=== PATIENT | female | born 1955 | race Caucasian/White ===

== ENCOUNTER → 2021-01-18 14:53 | Outpatient (BNVA) | payer MEDICARE, OTHER, SELFPAY | PROVIDERS: Visit Provider Nurse Practitioner Family | DX: J06.9 Acute upper respiratory infection, unspecified (principal); Z20.822 Contact with and (suspected) exposure to COVID-19 | CPT/HCPCS: 87635 ==

== ENCOUNTER 2021-01-22 05:58 | Outpatient (CLI) | payer MEDICARE, OTHER, SELFPAY ==
[2021-01-22 06:12] VITALS: BP 133/61; PULSE 62; RESP 18; TEMP 36.9; O2SAT 91
[2021-01-22 06:24] VITALS: BMI 28.3
--- NOTE | 2021-01-22 06:24 | W.ED.GENADLT ---
HPI - General Adult General: Source: patient Mode of arrival: ambulatory Limitations: no limitations History of Present Illness: HPI narrative: Patient is here for Covid infusion. complaint: Covid infusion Onset (ago): hour(s) (6) Radiation: non-radiation Severity: mild Pain Consistency: constant Relieving factors: none Exacerbating factors: none Associated symptoms: Reports cough and dyspnea (mild); Deny chest pain, confusion, nausea, rash, palpitations or vomiting Treatments prior to arrival: none Review of Systems Const: Denies: fever(s) or chills Eyes: Denies: change in vision ENMT: Denies: throat pain Card: Denies: chest pain or palpitations Resp: Reports: dyspnea (mild) and non-productive cough GI: Denies: abdominal pain, nausea or vomiting : Denies: flank pain Musc: Denies: neck pain or back pain Skin/Breast: Denies: rash or pruritus Neuro: Denies: confusion Psych: Denies: anxiety Yfn/Lymph: Denies: enlarged lymph nodes Physical Exam Const: COMMON NORMALS: no acute distress, patient oriented x3, no limitations and well nourished GENERAL APPEARANCE: cooperative OTHER: Oxygen saturation 94% on room air. HENMT: COMMON NORMALS: normocephalic and atraumatic HEAD & SCALP: normocephalic and atraumatic FACE & SINUS: normal facial exam Eye: COMMON NORMALS: EOMs intact bilaterally Neck/C-Spine: COMMON NORMALS: full ROM, no lymphadenopathy, supple and no meningeal signs GENERAL: Yes normal visual inspection Lymph: LYMPHATIC: no lymphadenopathy noted Chest: COMMONS NORMALS: normal inspection of the chest and normal palpation of entire chest wall CHEST: No Ecchymosis present and No rash Resp: COMMON NORMALS: normal respiratory effort, No retractions and clear to auscultation bilaterally EFFORT & INSPECTION: No respiratory distress AUSCULTATION: clear to auscultation bilaterally Cardio: COMMON NORMALS: regular rate, regular rhythm and Peripheral pulses 2+ throughout JUGULAR VENOUS DISTENTION: no JVD RATE: regular rate RHYTHM: regular rhythm PERIPHERAL PULSES: Peripheral pulses 2+ throughout GI: COMMON NORMALS: Normal to inspection, nondistended, normoactive bowel sounds present and non-tender : COMMON NORMALS: Yes no CVA tenderness BLADDER/KIDNEY EXAM: Yes no CVA tenderness Back/Pelvis: COMMON NORMALS: no CVA tenderness Extremity: COMMON NORMALS: normal to inspection, full ROM and capillary refill normal Neuro: COMMON NORMALS: patient oriented x3, CN's II-XII intact bilaterally, no focal motor deficits and no sensory deficits noted MENINGEAL SIGNS: Yes no meningeal signs Psych: COMMON NORMALS: mental status grossly normal and Normal thought process present THOUGHT PROCESS: Normal thought process present Skin: COMMON NORMALS: no rashes or lesions noted and no wounds GENERAL SKIN EXAM: no rashes or lesions noted Course Vital Signs: Vital signs: Vital Signs Temperature 98.5 F 01/22/21 06:12 Pulse Rate 60 01/22/21 07:36 Respiratory Rate 16 01/22/21 07:36 Blood Pressure 128/68 01/22/21 07:36 Pulse Oximetry 93 01/22/21 07:36 MDM - General Adult MDM Narrative: Medical decision making narrative: Oxygen saturation 94% on room air 0825: pt doing well Discharge Plan Discharge Patient Disposition: Home Prescriptions: New ProAir HFA 90 mcg/actuation HFA aerosol inhaler 2 inh inhalation Q6H PRN (Reason: shortness of breath or wheezing) Qty: 8.5 RF: 2 No Action atorvastatin 40 mg tablet 40 mg PO DAILY RF: 0 clonidine HCl 0.1 mg tablet 0.1 mg PO BID RF: 0 clopidogrel [Plavix] 75 mg tablet 75 mg PO DAILY RF: 0 senna 8.6 mg capsule 8.6 mg PO DAILY RF: 0 glimepiride 4 mg tablet 4 mg PO DAILY RF: 0 metformin 1,000 mg tablet 1,000 mg PO BID RF: 0 pantoprazole [Protonix] 40 mg tablet,delayed release (DR/EC) 40 mg PO DAILY RF: 0 cetirizine [Zyrtec] 10 mg tablet 10 mg PO DAILY PRNRF: 0 Discharge Orders: Discharge Order (Routine); Ordered 01/22/21 Ordered By: Harjit Knight Referrals: Kike Lozada MD [Primary Care Provider] - Activity: Increase activity as tolerated Patient Instructions: Viral Syndrome - Adult, How to Use a Metered-Dose Inhaler (ED) Activity Restrictions/Additional Instructions: Return if any problems. May use inhaler as needed for any shortness of breath or wheezing. Coding Level of Care Code ED Network Contractor for Chg Fwd Exam Comprehensive
[2021-01-22 06:40] VITALS: O2SAT 93
[2021-01-22 07:25] VITALS: BP 111/60; PULSE 57; RESP 17; O2SAT 93
[2021-01-22 07:36] VITALS: BP 128/68; PULSE 60; RESP 16; O2SAT 93
[2021-01-22 08:45] VITALS: BP 143/65; PULSE 63; RESP 15; O2SAT 90
== END 2021-01-22 05:59 | disposition home or self-care (01) ==
PROVIDERS: PCP Family Medicine; Visit Provider Nurse Practitioner Family
DX: U07.1 COVID-19 (principal)
CPT/HCPCS: 96365